=== PATIENT | male | born 2000 | race Hispanic/Latino ===

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

== ENCOUNTER → 2021-09-02 | Outpatient (CLI) | payer BC, OTHER ==
--- NOTE | 2021-09-03 14:31 | SLEEPCENT ---
DATE: 09/02/2021 ORDERED BY: Loretta Anders Nocturnal polysomnography was performed for evaluation of sleep physiology in this patient with a history of snoring. There was 8 hours and 20 minutes of data reviewed. There was 458 minutes of sleep identified. Sleep latency was normal at 23 minutes. REM latency was normal at 81.5 minutes. Sleep architecture was normal with four REM cycles. Overall sleep efficiency was 92.6%. The electrocardiogram showed a sinus rhythm with average heart rate of 66 beats per minute. EEG showed normal waveforms for wake and sleep. No focal events were identified. There was only one obstructive respiratory event of 10 seconds in duration or greater of an apnea-hypopnea index of 0.1. Snoring was noted. Arousals from respiratory events and arousals from snoring were included and occurred once per hour. There was some limb activity in the EMG leads. No trains of events. Limb movement arousal index borderline at 8.6. Oxygen saturations were normal at 90% plus throughout the study. IMPRESSION: Normal nocturnal polysomnography with snoring.
== END ==
LOC: M SLEEP 20:00
PROVIDERS: ATTEND Nurse Practitioner Family
DX: R06.83 Snoring (principal)